=== PATIENT | female | born 1945 | race American Indian/Alaskan Native ===

== ENCOUNTER 2019-01-18 10:50 | Outpatient (CLI) | payer MEDICARE ==
--- NOTE | 2019-01-18 12:28 | Magnetic Resonance Report ---
MRI BRAIN 01/18/2019 INDICATION / CLINICAL INFORMATION: G43.709)migraine with aura, not intractable, without status migra. TECHNIQUE: Multiplanar, multisequence MR images of the brain were obtained. COMPARISON: None available. FINDINGS: BRAIN / INTRACRANIAL CONTENTS: Unenhanced MR images of the brain demonstrate no evidence of acute int racranial abnormality. Ventricles and sulci are within normal limits of size and shape for a patient of this age. A few scattered nonspecific white matter T2 weighted hyperintensities are present in the cerebral hem ispheric white matter. Brain parenchyma is well preserved for age. There is no evidence of acute ischemic injury, hemorrhage, or mass. There are no abnormal extra-axial fluid collections. EXTRACRANIAL: Unremarkable CRANIOCERVICAL JUNCTION: No significant abnormality. VASCULAR FLOW-VOIDS: No significant abnormality. IMPRESSION: No acute abnormality. Mild chronic and age-related changes. Signer Name: Nicola Burgess MD Signed: 01/18/2019 12:24 PM Workstation Name: [id number]
== END 2019-01-18 10:51 | disposition home or self-care (01) ==
LOC: MRI 10:50
PROVIDERS: ATTEND Psychiatry & Neurology Neurology
DX: G43.709 Chronic migraine without aura, not intractable, without status migrainosus (principal); E78.00 Pure hypercholesterolemia, unspecified; I10 Essential (primary) hypertension; J45.909 Unspecified asthma, uncomplicated
CPT/HCPCS: 70551